=== PATIENT | male | born 1965 ===

== ENCOUNTER 2021-12-08 14:10 | Emergency (ER) | payer OTHER ==
[2021-12-08] MEDS ORDERED: Acetaminophen 500 MG TAB ONE (14:36)
[2021-12-08 20:33] LABS: SARS-CoV-2 PCR by NAA Not Detected (NotDetected)
== END 2021-12-08 14:45 | disposition home or self-care (01) ==
LOC: ERS 14:10
DX: R51.9 Headache, unspecified (principal); R05.9 Cough, unspecified; R11.0 Nausea; R63.0 Anorexia; R04.0 Epistaxis; F17.200 Nicotine dependence, unspecified, uncomplicated; Z20.822 Contact with and (suspected) exposure to COVID-19; Z68.45 Body mass index [BMI] 70 or greater, adult
CPT/HCPCS: 99284; U0003; U0005

== ENCOUNTER 2022-06-27 17:00 | Outpatient (CLI) | payer OTHER | END 2022-06-27 17:01 | disposition home or self-care (01) | LOC: SLEEPLAB 17:00 | PROVIDERS: ATTEND Nurse Practitioner Family | DX: G47.10 Hypersomnia, unspecified (principal); G47.33 Obstructive sleep apnea (adult) (pediatric); R53.83 Other fatigue; I11.0 Hypertensive heart disease with heart failure; I50.9 Heart failure, unspecified; J44.9 Chronic obstructive pulmonary disease, unspecified; I25.10 Atherosclerotic heart disease of native coronary artery without angina pectoris; E11.9 Type 2 diabetes mellitus without complications; K21.9 Gastro-esophageal reflux disease without esophagitis; G47.00 Insomnia, unspecified | CPT/HCPCS: 95811 ==